=== PATIENT | female | born 1935 | race Caucasian/White ===

== ENCOUNTER 2018-04-28 11:49 | Inpatient (IN) | payer MEDICARE, OTHER ==
[~2018-04-28] VITALS: Ht 157.5 cm; Wt 63.0 kg
[~2018-04-28 11:49] MED LIST: AMLO2.5T5 PO; ASPI-630 PO; ATOR20TA58 PO; AZIT250T PO; BRIM5DRO3 OD; CALC667C6; CALCIUM PO; CLOP75TA PO; CRAN500C6 PO; EZET10TA18 PO; FAMO-63 PO; FLUT12HF2 IH; FURO40TA4 PO; HYDR115S2 PO; LORA0.5T PO; METO-239 PO; METO25TA4 PO; MULT1TAB52 PO; NITR0.4T SL; PANT40TA3 PO; VALS80TA3 PO; VIT D PO; [UNRECOGNIZED DRUG - CODE] MC; [UNRECOGNIZED DRUG - CODE] OD; [UNRECOGNIZED DRUG - CODE] OP; [UNRECOGNIZED DRUG - CODE] OP; [UNRECOGNIZED DRUG - CODE] OP
[2018-04-28 12:15] LABS: BASO % 1 % (0-3); EOS % 0 % (0-3); HEMATOCRIT 41.1 % (36.0-47.0); LYMPH # 1.3 x10^3/uL (1.0-4.8); LYMPH % 19 % (24-48); MEAN CORPUSCULAR HEMOGLOBIN 32 pg (25-35); MEAN CORPUSCULAR HGB CONC 34 g/dL (31-37); MEAN CORPUSCULAR VOLUME 94 fL (79-100); MONO # 0.3 x10^3/uL (0.0-1.1); MONO % 4 % (0-9); NEUT # 5.1 x10^3uL (1.8-7.7); NEUT % 76 % (31-73); PLATELET COUNT 200 x10^3/uL (140-400); RED BLOOD COUNT 4.39 x10^6/uL (3.50-5.40); RED CELL DISTRIBUTION WIDTH 13.9 % (11.5-14.5); WHITE BLOOD COUNT 6.7 x10^3/uL (4.0-11.0)
--- NOTE | 2018-04-28 12:20 | RAD ---
EXAM: CHEST 1 VIEW History: Weakness COMPARISON: 11/18/2014 TECHNIQUE: Single portable radiograph of the chest FINDINGS: The cardiac silhouette is unremarkable. Minimal left lung base airspace opacities. IMPRESSION: Minimal left lung base airspace opacities likely atelectasis or infiltrate. Electronically signed by: Lakhwinder Heard MD (04/28/2018 12:17 PM) [facility]
--- NOTE | 2018-04-28 12:27 | PHYS DOC ---
Past History Past Medical History: Anxiety, CAD, CHF, COPD, GERD, Glaucoma, High Cholesterol , Hypertension, Lung Disease Past Surgical History: Angioplasty, Cholecystectomy, Coronary Bypass Surgery, Hysterectomy Alcohol Use: None Drug Use: None Adult General Chief Complaint Chief Complaint: WEAKNESS/GENERALIZED HPI HPI Patient is a 83 year old female who brought in by EMS because of weakness and palpitation. Patient states she checked her blood pressure this morning as a routine check her blood pressure was 180/100 that was a lot higher than her usual blood pressure. Patient complaining of generalized weakness and palpitation shortness of breath with nausea without chest pain, focal neuro deficit, headache, urinary symptoms, fever and chills. Patient denies is sent urinary symptom. Review of Systems Review of Systems Constitutional: Denies fever or chills [] Eyes: Denies change in visual acuity, redness, or eye pain [] HENT: Denies nasal congestion or sore throat [] Respiratory: Denies cough or shortness of breath [] Cardiovascular: No additional information not addressed in HPI [] GI: Denies abdominal pain, nausea, vomiting, bloody stools or diarrhea [] : Denies dysuria or hematuria [] Musculoskeletal: Denies back pain or joint pain [] Integument: Denies rash or skin lesions [] Neurologic: Denies headache, focal weakness or sensory changes [] Endocrine: Denies polyuria or polydipsia [] All other systems were reviewed and found to be within normal limits, except as documented in this note. Allergies Allergies Allergies Coded Allergies Type Severity Reaction Last Updated Verified No Known Drug Allergies 04/28/18 No Physical Exam Physical Exam Constitutional: Well developed, well nourished, no acute distress, non-toxic appearance. [] HENT: Normocephalic, atraumatic, bilateral external ears normal, oropharynx moist, no oral exudates, nose normal. [] Eyes: PERRLA, EOMI, conjunctiva normal, no discharge. [] Neck: Normal range of motion, no tenderness, supple, no stridor. [] Cardiovascular:Heart rate regular rhythm, no murmur [] Lungs & Thorax: Bilateral breath sounds clear to auscultation [] Abdomen: Bowel sounds normal, soft, no tenderness, no masses, no pulsatile masses. [] Skin: Warm, dry, no erythema, no rash. [] Back: No tenderness, no CVA tenderness. [] Extremities: No tenderness, no cyanosis, no clubbing, ROM intact, no edema. [] Neurologic: Alert and oriented X 3, normal motor function, normal sensory function, no focal deficits noted. [] Psychologic: Affect normal, judgement normal, mood normal. [] Current Patient Data Vital Signs Vital Signs Date Time Temp Pulse Resp B/P (MAP) Pulse Ox O2 Delivery O2 Flow Rate FiO2 04/28/18 11:54 75 20 96 Nasal Cannula 2.0 Lab Results Laboratory Tests Test 04/28/18 12:00 White Blood Count 6.7 x10^3/uL (4.0-11.0) Red Blood Count 4.39 x10^6/uL (3.50-5.40) Hemoglobin 14.0 g/dL (12.0-15.5) Hematocrit 41.1 % (36.0-47.0) Mean Corpuscular Volume 94 fL (79-100) Mean Corpuscular Hemoglobin 32 pg (25-35) Mean Corpuscular Hemoglobin Concent 34 g/dL (31-37) Red Cell Distribution Width 13.9 % (11.5-14.5) Platelet Count 200 x10^3/uL (140-400) Neutrophils (%) (Auto) 76 % (31-73) H Lymphocytes (%) (Auto) 19 % (24-48) L Monocytes (%) (Auto) 4 % (0-9) Eosinophils (%) (Auto) 0 % (0-3) Basophils (%) (Auto) 1 % (0-3) Neutrophils # (Auto) 5.1 x10^3uL (1.8-7.7) Lymphocytes # (Auto) 1.3 x10^3/uL (1.0-4.8) Monocytes # (Auto) 0.3 x10^3/uL (0.0-1.1) Eosinophils # (Auto) 0.0 x10^3/uL (0.0-0.7) Basophils # (Auto) 0.0 x10^3/uL (0.0-0.2) EKG EKG EKG interpreted by me. EKG at 1152 showed normal sinus rhythm at rate of 76, normal GA and QT intervals, no acute ST or T-wave abnormalities. Radiology/Procedures Radiology/Procedures [][address] [address] IMAGING REPORT Signed PATIENT: ANITHA MYERS ACCOUNT: [id number] : 1935 LOCATION: ER AGE: 83 SEX: F EXAM STATUS: REG ER ORD. PHYSICIAN: RAF CAMARGO MD REASON: generalized weakness PROCEDURE: CT HEAD WO CONTRAST CT HEAD INDICATION: weakness x 1 day with hx of heart disease COMPARISON: None Available. Exposure: One or more of the following individualized dose reduction techniques were utilized for this examination: 1. Automated exposure control 2. Adjustment of the mA and/or kV according to patient size 3. Use of iterative reconstruction technique TECHNIQUE: 5 mm contiguous axial images were obtained from the skull base to the vertex in both bone and soft tissue algorithm. FINDINGS: Mild bilateral periventricular white matter hypodensities likely chronic small vessel ischemic disease. No evidence of acute intracranial hemorrhage. No extra-axial fluid collections. No mass effect or midline shift. Ventricular size is appropriate. Basal cisterns are patent. No fractures identified.[place]-white differentiation is preserved.Globes and orbits are within normal limits. Mild mucosal thickening identified in the bilateral ethmoidal sinuses and the maxillary sinuses. Moderate mucosal thickening left sphenoid sinus IMPRESSION: 1. No acute intracranial findings. 2. Sinus disease. Electronically signed by: Lakhwinder Heard MD (04/28/2018 12:50 PM) [facility] DICTATED AND SIGNED BY: LAKHWINDER HEARD MD DATE: 04/28/181246 CC: RIANA GUNTER MD; RAF CAMARGO MD ~ [address] [address] IMAGING REPORT Signed PATIENT: ANITHA MYERS ACCOUNT: [id number] : 1935 LOCATION: ER AGE: 83 SEX: F EXAM STATUS: REG ER ORD. PHYSICIAN: RAF CAMARGO MD REASON: generalized weakness PROCEDURE: CT HEAD WO CONTRAST CT HEAD INDICATION: weakness x 1 day with hx of heart disease COMPARISON: None Available. Exposure: One or more of the following individualized dose reduction techniques were utilized for this examination: 1. Automated exposure control 2. Adjustment of the mA and/or kV according to patient size 3. Use of iterative reconstruction technique TECHNIQUE: 5 mm contiguous axial images were obtained from the skull base to the vertex in both bone and soft tissue algorithm. FINDINGS: Mild bilateral periventricular white matter hypodensities likely chronic small vessel ischemic disease. No evidence of acute intracranial hemorrhage. No extra-axial fluid collections. No mass effect or midline shift. Ventricular size is appropriate. Basal cisterns are patent. No fractures identified.[place]-white differentiation is preserved.Globes and orbits are within normal limits. Mild mucosal thickening identified in the bilateral ethmoidal sinuses and the maxillary sinuses. Moderate mucosal thickening left sphenoid sinus IMPRESSION: 1. No acute intracranial findings. 2. Sinus disease. Electronically signed by: Lakhwinder Heard MD (04/28/2018 12:50 PM) [facility] DICTATED AND SIGNED BY: LAKHWINDER HEARD MD DATE: 04/28/18 3094 CC: RIANA GUNTER MD; RAF CAMARGO MD ~ [place] [address] IMAGING REPORT Signed PATIENT: ANITHA MYERS ACCOUNT: [id number] : 1935 LOCATION: ER AGE: 83 SEX: F EXAM STATUS: REG ER ORD. PHYSICIAN: RAF CAMARGO MD REASON: generalized weakness PROCEDURE: PORTABLE CHEST 1V EXAM: CHEST 1 VIEW History: Weakness COMPARISON: 11/18/2014 TECHNIQUE: Single portable radiograph of the chest FINDINGS: The cardiac silhouette is unremarkable. Minimal left lung base airspace opacities. IMPRESSION: Minimal left lung base airspace opacities likely atelectasis or infiltrate. Electronically signed by: Lakhwinder Heard MD (04/28/2018 12:17 PM) [facility] DICTATED AND SIGNED BY: LAKHWINDER HEARD MD DATE: 04/28/18 4505 CC: RIANA GUNTER MD; RAF CAMARGO MD ~ Course & Med Decision Making Course & Med Decision Making Pertinent Labs and Imaging studies reviewed. (See chart for details) Evaluation of patient in ER showed 83-year-old female patient with complaining of elevation of blood pressure and dizziness and palpitation with shortness of breath. Patient had anxiety in ER and treated with Ativan with improvement of her condition. Patient had unremarkable CT head. EKG did not show tachycardia. Blood pressure was 180s at arrival to ER that gradually decreased to 150s. Dr. Gunter accepted admission at 1411. Dragon Disclaimer Dragon Disclaimer This electronic medical record was generated, in whole or in part, using a voice recognition dictation system. Departure Departure: Impression: Primary Impression: Generalized weakness Additional Impressions: Urinary tract infection Panic attack Disposition: ADMITTED INPATIENT (at 1412) Admitting Physician: Riana Gunter Condition: IMPROVED Referrals: RIANA GUNTER MD (PCP) Problem Qualifiers RAF CAMARGO MD Apr 28, 2018 12:27
--- NOTE | 2018-04-28 12:53 | RAD ---
CT HEAD INDICATION: weakness x 1 day with hx of heart disease COMPARISON: None Available. Exposure: One or more of the following individualized dose reduction techniques were utilized for this examination: 1. Automated exposure control 2. Adjustment of the mA and/or kV according to patient size 3. Use of iterative reconstruction technique TECHNIQUE: 5 mm contiguous axial images were obtained from the skull base to the vertex in both bone and soft tissue algorithm. FINDINGS: Mild bilateral periventricular white matter hypodensities likely chronic small vessel ischemic disease. No evidence of acute intracranial hemorrhage. No extra-axial fluid collections. No mass effect or midline shift. Ventricular size is appropriate. Basal cisterns are patent. No fractures identified.[place]-white differentiation is preserved.Globes and orbits are within normal limits. Mild mucosal thickening identified in the bilateral ethmoidal sinuses and the maxillary sinuses. Moderate mucosal thickening left sphenoid sinus IMPRESSION: 1. No acute intracranial findings. 2. Sinus disease. Electronically signed by: Lakhwinder Haerd MD (04/28/2018 12:50 PM) [facility]
[2018-04-28] MEDS ORDERED: LORazepam 2 MG/ML VIAL IV ONE (13:00)
[2018-04-28 13:59] LABS: ALBUMIN 3.4 g/dL (3.4-5.0); ALBUMIN/GLOBULIN RATIO 0.9 (1.0-1.7); CALCIUM 9.2 mg/dL (8.5-10.1); CREATININE 0.6 mg/dL (0.6-1.0); GFR 95.7; MAGNESIUM 2.2 mg/dL (1.8-2.4); POTASSIUM 3.9 mmol/L (3.5-5.1); TOTAL BILIRUBIN 0.4 mg/dL (0.2-1.0); TOTAL PROTEIN 7.4 g/dL (6.4-8.2)
[2018-04-28 14:18] LABS: BACTERIA,URINE FEW /HPF (0-FEW); BILIRUBIN,URINE NEG (NEG); CLARITY,URINE HAZY; COLOR,URINE YELLOW; GLUCOSE,URINE NEG (NEG); HYALINE CASTS, URINE FEW /HPF; NITRITE,URINE NEG (NEG); SQUAMOUS EPITHELIAL CELL,UR OCC /LPF; UROBILINOGEN,URINE 0.2 mg/dL (0.2 mg/dL)
[2018-04-28] MEDS ORDERED: IV NORMAL SALINE 50ML 50 ML ONE (14:37)
[2018-04-28] MEDS ORDERED: cefTRIAXone SODIUM 1 GM VIAL ONE (14:37)
[2018-04-28 16:41] VITALS: BP 171/88
[2018-04-28] MEDS ORDERED: HYDR5SUS PO ×2 (17:12→17:44)
[2018-04-28] MEDS ORDERED: ATOR40TA59 PO (17:12)
[2018-04-28] MEDS ORDERED: METO25TA4 PO (17:12)
[2018-04-28] MEDS ORDERED: LORA0.5T PO (17:12)
[2018-04-28] MEDS ORDERED: LOSA50TA14 PO (17:12)
[2018-04-28] MEDS ORDERED: FURO40TA4 PO (17:12)
[2018-04-28] MEDS ORDERED: RANI150T2 PO (17:12)
[2018-04-28] MEDS ORDERED: BRIM5DRO3 OD (17:12)
[2018-04-28] MEDS ORDERED: OMEP40CA5 PO (17:12)
[2018-04-28] MEDS ORDERED: MULT1TAB52 PO (17:44)
[2018-04-28] MEDS ORDERED: FLUT12HF2 IH (17:44)
[2018-04-28] MEDS ORDERED: [UNRECOGNIZED DRUG - CODE] OD (17:44)
[2018-04-28] MEDS ORDERED: CALC-30 PO (17:44)
[2018-04-28] MEDS ORDERED: ASPI81TA59 PO (17:44)
[2018-04-28] MEDS ORDERED: DIPH50CA PO (17:44)
[2018-04-28] MEDS ORDERED: CYAN1TAB5 SL (17:44)
--- NOTE | 2018-04-28 18:11 | EKG ---
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
[2018-04-28] MEDS ORDERED: [UNRECOGNIZED DRUG - OTHER] PO PRN (18:30)
[2018-04-28] MEDS ORDERED: HYDROCODONE PO PRN (18:30)
[2018-04-28] MEDS ORDERED: diphenhydrAMINE HCL 25 MG CAPSULE PO PRN (18:45)
[2018-04-28] MEDS: ALBUTEROL SULFATE 2.5 MG/3 ML NEBU. NEB SCH ×2 (19:00→20:38)
[2018-04-28] MEDS ORDERED: LORazepam 0.5 MG TABLET PO PRN (19:00)
[2018-04-28] MEDS ORDERED: HYDROcodone/CHLORPHEN POLIS 5 ML SUS.ER.12H PO PRN ×2 (19:00→22:00)
[2018-04-28 19:05] VITALS: BP 171/84
[2018-04-28] MEDS: BUDESONIDE 0.5 MG/2 ML NEBU NEB SCH (20:38)
[2018-04-28 20:40] LABS: BILIRUBIN,URINE NEG (NEG); CLARITY,URINE CLEAR; COLOR,URINE YELLOW; GLUCOSE,URINE NEG (NEG); NITRITE,URINE NEG (NEG); UROBILINOGEN,URINE 0.2 mg/dL (0.2 mg/dL)
[2018-04-28 20:41] LABS: BACTERIA,URINE 0 /HPF (0-FEW); RBC,URINE RARE /HPF (0-2); SQUAMOUS EPITHELIAL CELL,UR OCC /LPF
[2018-04-28] MEDS: METOPROLOL TART IMMED RELEASE 25 MG TABLET PO SCH (20:48)
[2018-04-28] MEDS: BRIMONIDINE 0.2% OPHTH SOLUTION 5ML BOTTLE. OD SCH (20:48)
[2018-04-28] MEDS: ATORVASTATIN CALCIUM 20 MG TABLET PO SCH (20:48)
[2018-04-28] MEDS: PILOCARPINE 2% OD SCH (21:38)
[2018-04-28 23:35] VITALS: BP 154/78
[2018-04-29] MEDS: ONDANSETRON PF 4 MG/2 ML VIAL. IV PRN ×2 (00:44→09:19)
[2018-04-29] MEDS: MAG HYDROX/AL HYDROX/SIMETH 30 ML ORAL.SUSP PO PRN ×2 (04:16→19:44)
[2018-04-29 05:05] VITALS: BP 138/71
[2018-04-29] MEDS: ALBUTEROL SULFATE 2.5 MG/3 ML NEBU. NEB SCH ×4 (05:23→20:25)
[2018-04-29] MEDS: ASPIRIN 81 MG TAB.CHEW PO SCH ×2 (08:00→09:07)
[2018-04-29] MEDS: LOSARTAN 50 MG TABLET. PO SCH ×2 (09:00→09:07)
[2018-04-29] MEDS ORDERED: FLUTICASONE IH SCH (09:00)
[2018-04-29] MEDS: CALCIUM CARB/VIT D3 500/200 TABLET PO SCH ×2 (09:00→09:06)
[2018-04-29] MEDS: METOPROLOL TART IMMED RELEASE 25 MG TABLET PO SCH ×3 (09:00→20:06)
[2018-04-29] MEDS: FUROSEMIDE 40 MG TABLET PO SCH ×2 (09:00→09:07)
[2018-04-29] MEDS: MULTIVITAMIN with MINERAL TABLET. PO SCH ×2 (09:00→09:06)
[2018-04-29] MEDS ORDERED: SALMETEROL IH SCH (09:00)
[2018-04-29] MEDS ORDERED: COBAMAMIDE SL SCH (09:00)
[2018-04-29] MEDS ORDERED: CYANOCOBALAMIN SL SCH (09:00)
[2018-04-29] MEDS: PILOCARPINE 2% OD SCH ×4 (09:07→20:07)
[2018-04-29] MEDS: FAMOTIDINE 20 MG TABLET PO SCH (09:07)
[2018-04-29] MEDS: BRIMONIDINE 0.2% OPHTH SOLUTION 5ML BOTTLE. OD SCH ×2 (09:07→20:07)
[2018-04-29] MEDS: PANTOPRAZOLE 40 MG TABLET. PO SCH (09:07)
[2018-04-29] MEDS: HYDROcodone/CHLORPHEN POLIS 5 ML SUS.ER.12H PO SCH ×2 (09:08→20:21)
[2018-04-29] MEDS ORDERED: MAALOX:LIDO:APAP 6:2:1 ORAL SUSPENSION 180 ML BOTTLE. PO PRN (10:15)
[2018-04-29] MEDS ORDERED: MORPHINE SULFATE 2 MG/ML DISP.SYRIN. IV PRN (10:15)
[2018-04-29] MEDS: BUDESONIDE 0.5 MG/2 ML NEBU NEB SCH ×2 (10:24→20:25)
[2018-04-29] MEDS ORDERED: MORPHINE SULFATE 4 MG/ML DISP.SYRIN. IV PRN (10:45)
[2018-04-29 11:02] VITALS: BP 127/69
--- NOTE | 2018-04-29 11:12 | HP ---
ADMIT DATE: 04/28/2018 HISTORY OF PRESENT ILLNESS: An 83-year-old female brought in through the Emergency Room with elevated blood pressure. The patient was noted that she was increasingly weak, having abdominal pain and some nausea. The patient was also having elevated blood pressure over 190. This was not feeling well, as a result of this, came in through the Emergency Room where she was evaluated and admitted for further evaluation and treatment. She was also having severe headaches and chest x-ray showed the possibility of a pneumonic process. The patient otherwise was admitted. PAST MEDICAL HISTORY: Sinus surgery, multiple PVCs, coronary artery disease, 4-vessel bypass, stent placement, on chronic Plavix, hypercholesterolemia, multiple types of pneumonia, sleep apnea, hemorrhoids, abdominal surgery, appendectomy, cholecystectomy, hemorrhoidectomy, lumpectomy, hysterectomy, osteoporosis, orthopedic surgery, depression, anemia, chronic cough. IMMUNIZATIONS: Vaccinations for influenza and pneumococcal are up-to-date. ALLERGIES: No known drug allergies. FAMILY HISTORY: Mother and sister with diabetes. Father, mother, and sister with heart disease. MEDICATIONS: Listed in the chart was reviewed and reconciled. See the notes in the chart for that. SOCIAL HISTORY: The patient denies smoking, alcohol or drug use. Lives at home with her , who has severe Alzheimer's disease. The patient is a full code. She denies smoking, alcohol, or drug use. The patient has no known allergies. REVIEW OF SYSTEMS: Outside of severe headache, some nausea and vomiting, denies any trouble swallowing, denies chest pain per se, does have some shortness of breath, coughing as indicated. The patient also notes to have problems with abdominal pain primarily in the epigastric area. The patient has marked tenderness there. Does have bowel movements, a little bit loose, but not diarrhea. 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 PHYSICAL EXAMINATION: VITAL SIGNS: The patient's blood pressure is noted approximately 190/90, respiratory rate 20, pulse upwards of 80. The patient's temperature is 97.6. Oxygen saturation 95% on room air. HEENT: The patient's head was atraumatic, normocephalic. Eyes: PERRLA without jaundice. Mouth and throat were normal. NECK: Supple without JVD, carotid bruit, or thyromegaly. LUNGS: Diminished throughout, but clear. CARDIOVASCULAR: Regular sinus rhythm, S1, S2, without murmur, rub, thrill, or extra heart sound. ABDOMEN: Soft, nontender. No rebound or guarding. Positive bowel sounds, soft, but marked tenderness in the epigastric area, slight guarding, no rebounding. No hepatosplenomegaly. Positive bowel sound is indicated, but there is guarding. Stool hemoccult negative. EXTREMITIES: No clubbing, cyanosis, or edema. NEUROLOGIC: The patient is alert and oriented x 3. LABORATORY DATA: White count, hemoglobin and so forth normal. The patient's chemistries, blood sugar 128. BNP elevated at 480. The patient's albumin now steady. Liver enzymes normal. The patient's urine did show multiple bugs and 11-20 white blood cells and moderate amount of leukocyte esterases. The patient will be admitted for further evaluation and treatment. IMPRESSION: Pneumonia of unspecified etiology, community acquired, abdominal pain, nausea, vomiting, dehydration, urinary tract infection, chronic cough, chronic bronchitis. The patient will continue to be monitored carefully and make further evaluation on her as indicated and we will make adjustments accordingly. RIANA GUNTER MD DR: STEWART/maggie JOB#: [id number] / [id number]
--- NOTE | 2018-04-29 11:23 | RAD ---
Cysts supine and upright abdomen. HISTORY: Abdominal pain Supine and upright views were taken of the abdomen. There is no free air on the upright view or abnormal air-fluid levels. Patient's had a cholecystectomy. Visualized lung bases are clear. Patient's had a previous sternotomy. Bowel pattern is normal without bowel obstruction. IMPRESSION: 1. No bowel obstruction or acute finding noted in the abdomen. Electronically signed by: Andrea Zaragoza MD (04/29/2018 11:20 AM) [facility]
[2018-04-29] MEDS ORDERED: PROCHLORPERAZINE 10 MG/2 ML VIAL. IV PRN (12:15)
[2018-04-29] MEDS: KETOROLAC 15 MG/ML VIAL. IV PRN ×2 (12:35→20:08)
[2018-04-29 15:26] VITALS: BP 101/59
[2018-04-29 19:05] VITALS: BP 118/69
[2018-04-29] MEDS: ATORVASTATIN CALCIUM 20 MG TABLET PO SCH (20:06)
[2018-04-29 23:10] VITALS: BP 123/68
[2018-04-30] MEDS: MAG HYDROX/AL HYDROX/SIMETH 30 ML ORAL.SUSP PO PRN (04:41)
[2018-04-30] MEDS: ALBUTEROL SULFATE 2.5 MG/3 ML NEBU. NEB SCH ×2 (05:13→09:23)
[2018-04-30 05:26] VITALS: BP 134/77
[2018-04-30] MEDS ORDERED: DOXY100C2 PO (08:59)
[2018-04-30] MEDS: MULTIVITAMIN with MINERAL TABLET. PO SCH (09:00)
[2018-04-30] MEDS: BUDESONIDE 0.5 MG/2 ML NEBU NEB SCH (09:23)
[2018-04-30] MEDS: PANTOPRAZOLE 40 MG TABLET. PO SCH (09:34)
[2018-04-30] MEDS: ASPIRIN 81 MG TAB.CHEW PO SCH (09:34)
[2018-04-30] MEDS: CALCIUM CARB/VIT D3 500/200 TABLET PO SCH (09:34)
[2018-04-30] MEDS: LOSARTAN 50 MG TABLET. PO SCH (09:35)
[2018-04-30 09:36] VITALS: BP 134/77
[2018-04-30] MEDS: FAMOTIDINE 20 MG TABLET PO SCH (09:36)
[2018-04-30] MEDS: METOPROLOL TART IMMED RELEASE 25 MG TABLET PO SCH (09:36)
[2018-04-30] MEDS: FUROSEMIDE 40 MG TABLET PO SCH (09:36)
[2018-04-30] MEDS: HYDROcodone/CHLORPHEN POLIS 5 ML SUS.ER.12H PO SCH (09:37)
[2018-04-30] MEDS: PILOCARPINE 2% OD SCH (09:38)
[2018-04-30] MEDS: BRIMONIDINE 0.2% OPHTH SOLUTION 5ML BOTTLE. OD SCH (09:38)
[2018-04-30] MEDS: KETOROLAC 15 MG/ML VIAL. IV PRN (09:38)
--- NOTE | 2018-04-30 11:54 | DS ---
DATE OF DISCHARGE: HOSPITAL COURSE: An 83-year-old female in with coughing and difficulty breathing. The patient also was having abdominal pain, possible pneumonia. The patient was given IV Rocephin. She made extremely good recovery with that along with aggressive pulmonary toilet. The patient was breathing much easier and oxygen saturation still is hovering around 90-95% on room air. Her blood pressure was also markedly elevated. We brought that down under better control, down to 120/70, respiratory rate 18. IMPRESSION: Therefore, pneumonia of unspecified etiology, community-acquired, acute respiratory distress, acute bronchitis, pneumonitis as well as hypertensive urgency, abdominal pain. DISCHARGE PLAN: The patient will be discharged home, follow up, regular diet, decreased activity. MRAD is reviewed. RIANA GUNTER MD DR: STEWART/maggie JOB#: [id number] / [id number]
[2018-04-30] MEDS ORDERED: LACTOBACILLUS RHAMNOSUS GG 1 CAPSULE. PO SCH (21:00)
== END 2018-04-30 13:30 | disposition home or self-care (01) | DRG 689 ==
LOC: ER 11:49 → 1 SOUTH 14:10
PROVIDERS: ADMIT Family Medicine; ATTEND Family Medicine
DX: N39.0 Urinary tract infection, site not specified (principal); J18.9 Pneumonia, unspecified organism; J44.0 Chronic obstructive pulmonary disease with (acute) lower respiratory infection; E86.0 Dehydration; E78.00 Pure hypercholesterolemia, unspecified; F41.0 Panic disorder [episodic paroxysmal anxiety]; G47.30 Sleep apnea, unspecified; H40.9 Unspecified glaucoma; I11.0 Hypertensive heart disease with heart failure; I16.0 Hypertensive urgency; I25.10 Atherosclerotic heart disease of native coronary artery without angina pectoris; J20.9 Acute bronchitis, unspecified; M81.0 Age-related osteoporosis without current pathological fracture; Z79.02 Long term (current) use of antithrombotics/antiplatelets; Z82.0 Family history of epilepsy and other diseases of the nervous system; Z82.49 Family history of ischemic heart disease and other diseases of the circulatory system; Z90.710 Acquired absence of both cervix and uterus; Z83.3 Family history of diabetes mellitus; K21.9 Gastro-esophageal reflux disease without esophagitis; I50.9 Heart failure, unspecified; F32.9 Major depressive disorder, single episode, unspecified; F41.9 Anxiety disorder, unspecified; Z95.1 Presence of aortocoronary bypass graft
CPT/HCPCS: 36415; 70450; 71045; 74021; 80053; 81001; 82550; 83605; 83735; 83880; 84145; 84484; 85025; 87086; 93005; 94640; 96365; 96375; J0696; J0780; J1885; J2060; J2270; J2405; J7613; J7626; 99285-25

== ENCOUNTER → 2019-05-20 | Outpatient (CLI) | payer MEDICARE, OTHER ==
[~2019-05-20] MED LIST changes: +ASPI81TA59 PO; +ATOR40TA59 PO; +CALC-30 PO; +CYAN1TAB5 SL; +DIPH50CA PO; +DOXY100C2 PO; -EZET10TA18 PO; +EZET10TA20 PO; +HYDR5SUS PO; +LOSA50TA14 PO; -NITR0.4T SL; +NITR0.4T24 SL; +OMEP40CA45 PO; +RANI150T2 PO; +[UNRECOGNIZED DRUG - CODE] OD
--- NOTE | 2019-05-20 17:01 | RAD ---
CHEST PA LATERAL History: Shortness of breath Comparison: 04/28/2018 Portable Chest X-ray Exam. 11/18/2014 two-view chest x-ray exam. Findings: Frontal and lateral views of the chest were obtained. Sternal wires and mediastinal clips are present. The cardiomediastinal silhouette is normal. Pulmonary vasculature is normal. The lungs are clear. No pleural effusion or pneumothorax is seen. There is no acute bone abnormality. Compression deformity of upper to mid thoracic vertebral bodies noted. These are stable compared to 11/18/2014 two-view chest x-ray exam. Pulmonary hyperinflation is present. IMPRESSION: No acute cardiopulmonary process. COPD. No significant change. Electronically signed by: Luke Sommers MD (05/20/2019 4:58 PM) [id number]
== END | disposition home or self-care (01) ==
LOC: DXRAD 15:23
PROVIDERS: ATTEND Family Medicine
DX: J44.9 Chronic obstructive pulmonary disease, unspecified (principal); M43.8X4 Other specified deforming dorsopathies, thoracic region
CPT/HCPCS: 71046